=== PATIENT | male | born 1990 | race Caucasian/White ===

== ENCOUNTER 2023-04-27 20:10 | Emergency (ER) | payer MEDICAID ==
[~2023-04-27] VITALS: Ht 182.9 cm; Wt 118.0 kg
[2023-04-27 20:33] VITALS: BP 142/84; PULSE 103; RESP 14; TEMP 98; O2SAT 96
== END 2023-04-28 00:04 | disposition left against medical advice (07) ==
LOC: ER 20:10
DX: Z53.21 Procedure and treatment not carried out due to patient leaving prior to being seen by health care provider (principal)
CPT/HCPCS: 99281